=== PATIENT | male | born 1980 | race African-American/Black ===

== ENCOUNTER 2023-05-03 01:06 | Emergency (ER) | payer MEDICAID ==
[~2023-05-03] VITALS: Ht 175.3 cm; Wt 76.0 kg
[2023-05-03 01:25] VITALS: O2SAT 98
[2023-05-03] MEDS ORDERED: ONDANSETRON HCL 4MG/2ML INJ IV STA (01:37)
[2023-05-03] MEDS ORDERED: MAGNESIUM/ALUMINUM HYDROXIDE/SIMETHICONE 30ML UDC PO STA (01:37)
[2023-05-03] MEDS ORDERED: PANTOPRAZOLE SODIUM 40 MG/VIAL IV STA (01:37)
[2023-05-03] MEDS ORDERED: SODIUM CHLORIDE 0.9% 1,000 ML IV ONE (01:45)
[2023-05-03 03:27] LABS: BASOPHILS % 0.3 % (0.0-2.0); EOSINOPHILS % 0.3 % (0.0-5.0); HEMATOCRIT. 44.8 % (42.0-52.0); HEMOGLOBIN. 15.5 g/dL (14.0-18.0); LYMPHOCYTES % 14.9 % (20.0-50.0); MEAN CORPUSCULAR HEMOGLOBIN 31.9 pg (28.0-32.0); MEAN CORPUSCULAR HGB CONC 34.6 g/dL (31.0-37.0); MEAN CORPUSCULAR VOLUME 92.2 fL (80.0-94.0); MEAN PLATELET VOLUME 8.3 fl (7.4-10.4); MONOCYTES % 7.4 % (2.0-8.0); NEUTROPHILS % 77.1 % (40.0-76.0); PLATELET 285 x1000/uL (130-400); RED BLOOD CELL COUNT 4.86 mill/uL (4.7-6.1); RED CELL DISTRIBUTION WIDTH 13.8 % (11.6-14.6); WHITE BLOOD COUNT 11.9 x1000/uL (4.5-11.0)
[2023-05-03] MEDS ORDERED: HALOPERIDOL LACTATE 5MG/ML VIAL IM ONE (03:30)
[2023-05-03] MEDS ORDERED: LORAZEPAM 2MG/ML INJ IV ONE (03:30)
[2023-05-03 03:35] LABS: INR 1.1; PROTHROMBIN TIME 11.7 sec (9.6-11.0)
[2023-05-03] MEDS ORDERED: MAGNESIUM/ALUMINUM HYDROXIDE/SIMETHICONE 30ML UDC PO NR (03:45)
[2023-05-03] MEDS ORDERED: ONDANSETRON HCL 4MG/2ML INJ IV NR (03:45)
[2023-05-03] MEDS ORDERED: PANTOPRAZOLE SODIUM 40 MG/VIAL IV NR (03:45)
[2023-05-03 04:09] LABS: ALANINE AMINOTRANSFERASE 18 IU/L (10-49); ALBUMIN 4.6 g/dL (3.2-4.8); ASPARTATE AMINOTRANSFERASE 23 IU/L (<34); BILIRUBIN TOTAL 1.1 mg/dL (0.1-1.0); CALCIUM 9.9 mg/dL (8.7-10.4); CARBON DIOXIDE 22 mEq/L (21-32); CHLORIDE 106 mEq/L (98-107); CREATININE 1.4 mg/dL (0.6-1.3); ETHANOL BLOOD < 10 mg/dL (<10); GLUCOSE 120 mg/dL (70-105); POTASSIUM 3.6 mEq/L (3.5-5.1); PROTEIN TOTAL 7.8 g/dL (6.0-8.3); SODIUM 142 mEq/L (136-145); UREA NITROGEN BLOOD 13 mg/dL (9-23)
[2023-05-03 04:56] LABS: LACTIC ACID 4.1 mmol/L (0.4-2.0)
[2023-05-03] MEDS ORDERED: SODIUM CHLORIDE 0.9% 1,000 ML IV NR (05:00)
[2023-05-03] MEDS ORDERED: PROT40 MT (06:56)
[2023-05-03] MEDS ORDERED: ONDA4TAB50 MT (06:56)
[2023-05-03] MEDS ORDERED: MAG355OR21 MT (06:56)
[2023-05-03] MEDS ORDERED: LACT10SO3 MT (08:42)
[2023-05-03 10:35] VITALS: BP 138/65; PULSE 71; RESP 18; TEMP 98.1
== END 2023-05-03 11:07 | disposition home or self-care (01) ==
LOC: ER 01:11
DX: R11.2 Nausea with vomiting, unspecified (principal); E87.20 Acidosis, unspecified; F12.10 Cannabis abuse, uncomplicated; Z00.00 Encounter for general adult medical examination without abnormal findings
CPT/HCPCS: 80053; 80320; 83605; 83690; 85025; 85610; 36415; 71045; 74176; 96361; 96372; 96374; 96375; 99285; J1630; J2060; J2405; C9113; J7030; Z7610 ×2; G0480